=== PATIENT | male | born 1955 | race Caucasian/White ===

== ENCOUNTER 2020-05-08 13:04 | Inpatient (IN) | payer OTHER ==
[~2020-05-08] VITALS: Ht 182.9 cm; Wt 66.7 kg
[~2020-05-08 13:04] MED LIST: ASPIR-LOW81 MG PO; AUGMENTIN 875-1 EACH PO; AVELOX400 MG PO; CAPOZIDE 25/15 T1 EA PO; CATAPRES0.3 MG PO; CRESTOR40 MG PO; ECOTRIN81 MG PO; FARXIGA10 MG PO; FARXIGA5 MG PO; FERROUS SULFAT325 M1 PO; FERROUS SULFAT325 M2 PO; FERROUS SULFAT325 MG PO; FUROSEMIDE20 MG PO; HUMALOG100 UNIT/3 SQ; HYDRALAZINE HC100 MG PO; HYDRALAZINE HCL50 MG PO; HYDROCHLOROTHIA25 MG PO; IMDUR ER TAB 3030 MG PO; KEFLEX CAP 500500 MG PO; LANTUS100 UNIT/1 SQ; LASIX 40 MG TAB40 MG PO; LASIX40 MG PO; LEVAQUIN500 MG PO; LEVOFLOXACIN250 MG PO; LISINOPRIL40 MG PO; LORTAB 5-325 M1 EACH PO; MINIPRES CAP 2 M2 MG PO; MYCOSTATIN100000 UTS PO; NEXIUM40 MG PO; NORVASC 5 MG TAB5 MG PO; NORVASC10 MG PO; NOVOLOG100 UNIT/1 SC; PLAVIX 75 MG TA75 MG PO; PRINIVIL20 MG PO; PROTONIX20 MG PO; PROTONIX40 MG PO; RANEXA500 MG PO; SYMBICORT 16010.2 GM INH; TOPROL XL25 MG PO; TRESIBA100 UNIT/1 SQ; VIBRAMYCIN100 MG PO; XARELTO20 MG PO; ZAROXOLYN/DIULO5 MG PO; ZETIA 10 MG TAB10 MG PO; ZETIA10 MG PO; ZOFRAN4 MG PO; [UNRECOGNIZED DRUG - REMARK]
[2020-05-08] MEDS ORDERED: CLONIDINE HCL0.3 MG PO (18:11)
[2020-05-08] MEDS ORDERED: NIFEDIPINE ER30 MG PO (18:11)
[2020-05-08] MEDS ORDERED: ISOSORBIDE MONO30 MG PO (18:13)
[2020-05-08] MEDS ORDERED: CRESTOR40 MG PO (18:13)
[2020-05-08] MEDS ORDERED: FERROUS SULFAT325 MG PO (18:14)
[2020-05-08] MEDS ORDERED: CLOPIDOGREL75 MG PO (18:14)
[2020-05-08] MEDS ORDERED: LASIX 40 MG TAB40 MG PO (18:14)
[2020-05-08] MEDS ORDERED: ASPIRIN81 MG PO (18:15)
[2020-05-08] MEDS ORDERED: PANTOPRAZOLE SO20 MG PO (18:15)
[2020-05-08] MEDS ORDERED: MINIPRESS CAP 11 MG PO (18:16)
[2020-05-09 03:01] LABS: RED BLOOD COUNT 2.99 M/UL (4.20-5.50)
[2020-05-09 03:21] LABS: WHITE BLOOD COUNT 54.4 K/UL (4.5-11.0)
--- NOTE | 2020-05-09 12:26 | NUR ---
DR. CHONG ON FLOOR WITH NEW ORDERS NOTED
[2020-05-10 02:41] LABS: HEMOGLOBIN 8.8 gm/dl (14.0-17.5); RED BLOOD COUNT 2.85 M/UL (4.20-5.50)
[2020-05-10 02:55] LABS: WHITE BLOOD COUNT 47.7 K/UL (4.5-11.0)
[2020-05-11 02:44] LABS: HEMOGLOBIN 9.4 gm/dl (14.0-17.5); RED BLOOD COUNT 3.04 M/UL (4.20-5.50)
[2020-05-11 03:14] LABS: WHITE BLOOD COUNT 35.4 K/UL (4.5-11.0)
[2020-05-12 04:05] LABS: HEMOGLOBIN 8.3 gm/dl (14.0-17.5)
[2020-05-12 04:07] LABS: RED BLOOD COUNT 2.68 M/UL (4.20-5.50); WHITE BLOOD COUNT 22.1 K/UL (4.5-11.0)
[2020-05-13 02:46] LABS: HEMOGLOBIN 10.1 gm/dl (14.0-17.5)
[2020-05-13 02:56] LABS: RED BLOOD COUNT 3.34 M/UL (4.20-5.50); WHITE BLOOD COUNT 32.1 K/UL (4.5-11.0)
[2020-05-14 03:17] LABS: HEMOGLOBIN 9.4 gm/dl (14.0-17.5); RED BLOOD COUNT 3.04 M/UL (4.20-5.50); WHITE BLOOD COUNT 28.2 K/UL (4.5-11.0)
--- NOTE | 2020-05-14 19:00 | NUR ---
DR RAMESH HERE TO SEE PT. THANHOUS TO LEFT OUTER FOOT FILED. AREA CLEANED AND SOCK REAPPLIED.
[2020-05-15 04:35] LABS: RED BLOOD COUNT 2.89 M/UL (4.20-5.50); WHITE BLOOD COUNT 29.9 K/UL (4.5-11.0)
[2020-05-16 04:22] LABS: HEMOGLOBIN 9.3 gm/dl (14.0-17.5); RED BLOOD COUNT 3.04 M/UL (4.20-5.50)
[2020-05-16 04:44] LABS: WHITE BLOOD COUNT 34.4 K/UL (4.5-11.0)
[2020-05-17 06:31] LABS: HEMOGLOBIN 8.4 gm/dl (14.0-17.5); RED BLOOD COUNT 2.85 M/UL (4.20-5.50); WHITE BLOOD COUNT 26.6 K/UL (4.5-11.0)
[2020-05-17 12:03] LABS: BODY FLUID SOURCE PLEURAL; RBC (AUTOMATED) 500 (0-100000); WBC (AUTOMATED) 148 (0-500)
[2020-05-17 12:04] LABS: MONONUCLEAR CELLS 48.6 (75-100); POLYMORPHONUCLEAR % 51.4 (0-25)
[2020-05-17 18:31] LABS: LDH, BODY FLUID 458 U/L; TOTAL PROTEIN, BODY FLUID 1.2 gm/dL
[2020-05-18 05:51] LABS: HEMOGLOBIN 8.4 gm/dl (14.0-17.5); RED BLOOD COUNT 2.71 M/UL (4.20-5.50)
[2020-05-18 06:02] LABS: WHITE BLOOD COUNT 36.7 K/UL (4.5-11.0)
[2020-05-19 10:14] LABS: HBSAG SCREEN Negative (Negative); HEP A AB, IGM Negative (Negative); HEP B CORE AB, IGM Negative (Negative); HEP C VIRUS AB <0.1 (0.0-0.9)
[2020-05-19 10:15] LABS: HEMOGLOBIN 8.8 gm/dl (14.0-17.5); RED BLOOD COUNT 2.82 M/UL (4.20-5.50)
[2020-05-19 10:46] LABS: WHITE BLOOD COUNT 57.7 K/UL (4.5-11.0)
[2020-05-20 05:36] LABS: HEMOGLOBIN 8.7 gm/dl (14.0-17.5); RED BLOOD COUNT 2.88 M/UL (4.20-5.50)
[2020-05-20 06:39] LABS: WHITE BLOOD COUNT 54.2 K/UL (4.5-11.0)
[2020-05-21 06:15] LABS: HEMOGLOBIN 6.8 gm/dl (14.0-17.5); RED BLOOD COUNT 2.25 M/UL (4.20-5.50); WHITE BLOOD COUNT 41.5 K/UL (4.5-11.0)
[2020-05-21 10:39] LABS: RED BLOOD COUNT 2.24 M/UL (4.20-5.50)
[2020-05-21 10:46] LABS: HEMOGLOBIN 6.7 gm/dl (14.0-17.5); WHITE BLOOD COUNT 34.3 K/UL (4.5-11.0)
[2020-05-21 16:46] LABS: HEMOGLOBIN 8.5 gm/dl (14.0-17.5)
[2020-05-22 05:41] LABS: HEMOGLOBIN 8.4 gm/dl (14.0-17.5); WHITE BLOOD COUNT 29.4 K/UL (4.5-11.0)
[2020-05-22 05:43] LABS: RED BLOOD COUNT 2.77 M/UL (4.20-5.50)
[2020-05-23 06:39] LABS: HEMOGLOBIN 5.7 gm/dl (14.0-17.5); RED BLOOD COUNT 1.94 M/UL (4.20-5.50); WHITE BLOOD COUNT 36.6 K/UL (4.5-11.0)
[2020-05-23 16:14] LABS: HEMOGLOBIN 8.6 gm/dl (14.0-17.5)
[2020-05-24 05:33] LABS: HEMOGLOBIN 7.1 gm/dl (14.0-17.5)
[2020-05-24 05:37] LABS: RED BLOOD COUNT 2.34 M/UL (4.20-5.50)
[2020-05-24 12:11] LABS: HEMOGLOBIN 7.6 gm/dl (14.0-17.5); RED BLOOD COUNT 2.52 M/UL (4.20-5.50)
[2020-05-24 12:14] LABS: WHITE BLOOD COUNT 39.5 K/UL (4.5-11.0)
[2020-05-25 03:08] LABS: HEMOGLOBIN 6.6 gm/dl (14.0-17.5); RED BLOOD COUNT 2.24 M/UL (4.20-5.50); WHITE BLOOD COUNT 37.5 K/UL (4.5-11.0)
[2020-05-25 11:15] LABS: HEMOGLOBIN 8.2 gm/dl (14.0-17.5)
[2020-05-26 05:43] LABS: RED BLOOD COUNT 2.41 M/UL (4.20-5.50); WHITE BLOOD COUNT 26.8 K/UL (4.5-11.0)
[2020-05-26 05:44] LABS: HEMOGLOBIN 6.8 gm/dl (14.0-17.5)
[2020-05-26 11:13] LABS: HEMOGLOBIN 9.5 gm/dl (14.0-17.5)
[2020-05-26 13:10] LABS: HEPARIN INDUCED PLATELET AB 0.324 OD (0.000-0.400)
[2020-05-27 05:54] LABS: HEMOGLOBIN 8.5 gm/dl (14.0-17.5); WHITE BLOOD COUNT 27.6 K/UL (4.5-11.0)
[2020-05-27 05:56] LABS: RED BLOOD COUNT 2.89 M/UL (4.20-5.50)
[2020-05-28 05:44] LABS: HEMOGLOBIN 8.8 gm/dl (14.0-17.5); RED BLOOD COUNT 2.97 M/UL (4.20-5.50)
[2020-05-28 05:45] LABS: WHITE BLOOD COUNT 33.3 K/UL (4.5-11.0)
[2020-05-29 05:33] LABS: HEMOGLOBIN 8.5 gm/dl (14.0-17.5); RED BLOOD COUNT 2.83 M/UL (4.20-5.50); WHITE BLOOD COUNT 28.4 K/UL (4.5-11.0)
[2020-05-30 04:51] LABS: HEMOGLOBIN 7.6 gm/dl (14.0-17.5); WHITE BLOOD COUNT 22.1 K/UL (4.5-11.0)
[2020-05-30 04:53] LABS: RED BLOOD COUNT 2.52 M/UL (4.20-5.50)
[2020-05-30 20:54] LABS: ACINETOBACTER BAUMANNII Not Detected (Negative); CANDIDA KRUSEI Not Detected (Negative); CANDIDA TROPICALIS Not Detected (Negative); ENTEROCOCCUS Not Detected (Negative); ESCHERICHIA COLI Not Detected (Negative); HAEMOPHILUS INFLUENZAE Not Detected (Negative); KLEBSIELLA OXYTOCA Not Detected (Negative); KLEBSIELLA PNEUMONIAE Not Detected (Negative); KPC-CARBAPENEM-RESISTANCE GENE Not Detected (Negative); PSEUDOMONAS AERUGINOSA Not Detected (Negative); SERRATIA MARCESANS Not Detected (Negative); STAPHYLOCOCCUS Not Detected (Negative); STAPHYLOCOCCUS AUREUS Not Detected (Negative); STREP AGALACTIAE (GROUP B) Not Detected (Negative); STREP PYOGENES (GROUP A) Not Detected (Negative); STREPTOCOCCUS Not Detected (Negative); mecA (METHICILLIN RESIST GENE Not Detected (Negative); vanA/B (VANCOMYCIN RESIST GENE Not Detected (Negative)
[2020-05-31 00:20] LABS: PROTEUS DETECTED (Negative)
[2020-05-31 08:58] LABS: CANDIDA ALBICANS Not Detected (Negative)
== END 2020-05-30 17:50 | disposition expired | DRG 871 ==
LOC: CCU 18:07 → PROG CARE 18:07 → CCU 05-14 20:57
PROVIDERS: Family Medicine; Internal Medicine; Internal Medicine Infectious Disease; Internal Medicine Nephrology; Internal Medicine Pulmonary Disease; ADMIT Internal Medicine
PROC: 0W9930Z Drainage of Right Pleural Cavity with Drainage Device, Percutaneous Approach (ICD-10-PCS; principal; 2020-05-17)
PROC: 5A1D70Z Performance of Urinary Filtration, Intermittent, Less than 6 Hours Per Day (ICD-10-PCS; 2020-05-17)
PROC: XW033E5 Introduction of Remdesivir Anti-infective into Peripheral Vein, Percutaneous Approach, New Technology Group 5 (ICD-10-PCS; 2020-05-17)
PROC: 5A1D70Z Performance of Urinary Filtration, Intermittent, Less than 6 Hours Per Day (ICD-10-PCS; 2020-05-18)
PROC: 8E0ZXY6 Isolation (ICD-10-PCS; 2020-05-18)
PROC: 0JH63XZ Insertion of Tunneled Vascular Access Device into Chest Subcutaneous Tissue and Fascia, Percutaneous Approach (ICD-10-PCS; 2020-05-18)
PROC: 02HV33Z Insertion of Infusion Device into Superior Vena Cava, Percutaneous Approach (ICD-10-PCS; 2020-05-18)
PROC: B5181ZA Fluoroscopy of Superior Vena Cava using Low Osmolar Contrast, Guidance (ICD-10-PCS; 2020-05-18)
PROC: 5A1D70Z Performance of Urinary Filtration, Intermittent, Less than 6 Hours Per Day (ICD-10-PCS; 2020-05-19)
PROC: 5A1D70Z Performance of Urinary Filtration, Intermittent, Less than 6 Hours Per Day (ICD-10-PCS; 2020-05-20)
PROC: 30233N1 Transfusion of Nonautologous Red Blood Cells into Peripheral Vein, Percutaneous Approach (ICD-10-PCS; 2020-05-21)
PROC: 0DH67UZ Insertion of Feeding Device into Stomach, Via Natural or Artificial Opening (ICD-10-PCS; 2020-05-21)
PROC: 3E0G76Z Introduction of Nutritional Substance into Upper GI, Via Natural or Artificial Opening (ICD-10-PCS; 2020-05-21)
PROC: 0BH17EZ Insertion of Endotracheal Airway into Trachea, Via Natural or Artificial Opening (ICD-10-PCS; 2020-05-25)
PROC: 5A1935Z Respiratory Ventilation, Less than 24 Consecutive Hours (ICD-10-PCS; 2020-05-25)
PROC: 0W3P8ZZ Control Bleeding in Gastrointestinal Tract, Via Natural or Artificial Opening Endoscopic (ICD-10-PCS; 2020-05-25)
PROC: 0D9680Z Drainage of Stomach with Drainage Device, Via Natural or Artificial Opening Endoscopic (ICD-10-PCS; 2020-05-25)
PROC: 5A1D70Z Performance of Urinary Filtration, Intermittent, Less than 6 Hours Per Day (ICD-10-PCS; 2020-05-25)
PROC: 30233N1 Transfusion of Nonautologous Red Blood Cells into Peripheral Vein, Percutaneous Approach (ICD-10-PCS; 2020-05-25)
PROC: 02HV33Z Insertion of Infusion Device into Superior Vena Cava, Percutaneous Approach (ICD-10-PCS; 2020-05-26)
PROC: B548ZZA Ultrasonography of Superior Vena Cava, Guidance (ICD-10-PCS; 2020-05-26)
PROC: 5A1D70Z Performance of Urinary Filtration, Intermittent, Less than 6 Hours Per Day (ICD-10-PCS; 2020-05-26)
PROC: 30233N1 Transfusion of Nonautologous Red Blood Cells into Peripheral Vein, Percutaneous Approach (ICD-10-PCS; 2020-05-26)
PROC: 5A1D70Z Performance of Urinary Filtration, Intermittent, Less than 6 Hours Per Day (ICD-10-PCS; 2020-05-27)
PROC: 0BH17EZ Insertion of Endotracheal Airway into Trachea, Via Natural or Artificial Opening (ICD-10-PCS; 2020-05-28)
PROC: 5A1945Z Respiratory Ventilation, 24-96 Consecutive Hours (ICD-10-PCS; 2020-05-28)
PROC: 5A1D70Z Performance of Urinary Filtration, Intermittent, Less than 6 Hours Per Day (ICD-10-PCS; 2020-05-29)
PROC: 30233N1 Transfusion of Nonautologous Red Blood Cells into Peripheral Vein, Percutaneous Approach (ICD-10-PCS; 2020-05-30)
DX: A41.9 Sepsis, unspecified organism (principal); N17.0 Acute kidney failure with tubular necrosis; U07.1 COVID-19; J12.82 Pneumonia due to coronavirus disease 2019; J15.1 Pneumonia due to Pseudomonas; R65.21 Severe sepsis with septic shock; G93.41 Metabolic encephalopathy; J80 Acute respiratory distress syndrome; I50.33 Acute on chronic diastolic (congestive) heart failure; A04.72 Enterocolitis due to Clostridium difficile, not specified as recurrent; E87.2 Acidosis; J90 Pleural effusion, not elsewhere classified; D62 Acute posthemorrhagic anemia; K92.1 Melena; K92.2 Gastrointestinal hemorrhage, unspecified; D61.818 Other pancytopenia; I47.2 Ventricular tachycardia; N18.4 Chronic kidney disease, stage 4 (severe); Z68.1 Body mass index [BMI] 19.9 or less, adult; I13.0 Hypertensive heart and chronic kidney disease with heart failure and stage 1 through stage 4 chronic kidney disease, or unspecified chronic kidney disease; E46 Unspecified protein-calorie malnutrition; Z51.5 Encounter for palliative care; E11.22 Type 2 diabetes mellitus with diabetic chronic kidney disease; N18.30 Chronic kidney disease, stage 3 unspecified; R65.20 Severe sepsis without septic shock; L89.150 Pressure ulcer of sacral region, unstageable; E11.621 Type 2 diabetes mellitus with foot ulcer; R94.31 Abnormal electrocardiogram [ECG] [EKG]; E88.09 Other disorders of plasma-protein metabolism, not elsewhere classified; R62.7 Adult failure to thrive; L97.529 Non-pressure chronic ulcer of other part of left foot with unspecified severity; I07.1 Rheumatic tricuspid insufficiency; D72.829 Elevated white blood cell count, unspecified; Z20.822 Contact with and (suspected) exposure to COVID-19; E87.6 Hypokalemia; I25.10 Atherosclerotic heart disease of native coronary artery without angina pectoris; L84 Corns and callosities; E11.65 Type 2 diabetes mellitus with hyperglycemia; E78.5 Hyperlipidemia, unspecified; J39.8 Other specified diseases of upper respiratory tract; K21.9 Gastro-esophageal reflux disease without esophagitis; I27.20 Pulmonary hypertension, unspecified; D69.6 Thrombocytopenia, unspecified; I48.91 Unspecified atrial fibrillation; E87.70 Fluid overload, unspecified; D50.9 Iron deficiency anemia, unspecified; F17.210 Nicotine dependence, cigarettes, uncomplicated; Z79.82 Long term (current) use of aspirin; Z79.4 Long term (current) use of insulin; Z82.49 Family history of ischemic heart disease and other diseases of the circulatory system; Z79.899 Other long term (current) drug therapy; Z79.01 Long term (current) use of anticoagulants; Z95.1 Presence of aortocoronary bypass graft; Q27.33 Arteriovenous malformation of digestive system vessel; Z98.890 Other specified postprocedural states
CPT/HCPCS: ECHO; 31500; 36415; 36430; 36600; 71045; 71250; 74018; 76705; 77001; 80048; 80053; 80074; 80202; 80307; 81001; 82009; 82272; 82436; 82550; 82553; 82803; 82962; 83010; 83605; 83615; 83735; 83880; 84100; 84132; 84133; 84157; 84300; 84484; 85007; 85014; 85018; 85025; 85027; 85384; 85610; 85730; 86140; 86850; 86900; 86901; 86920; 87040; 87070; 87077; 87081; 87150; 87186; 87205; 87324; 87449; 87635; 89051; 90937; 92610; 93005; 93306; 93925; 93970; 94002; 94003; 94640; 94660; 94664; 94760; 97110; 97110-GP-CQ; 97116; 97162; 97164; 97530-GP-CQ; A6212; C1750; C1752; C1769; C9113; J0330; J0610; J1100; J1205; J1630; J1642; J1644; J1940; J2185; J2250; J2270; J2370; J2405; J2704; J2765; J3370; J3475; J7030; J7040; J7050; J7070; J7120; P9016; P9047; Q5106; U0002